=== PATIENT | male | born 1975 | race Hispanic/Latino ===

== ENCOUNTER 2020-06-02 10:36 | Emergency (ER) | payer OTHER ==
[2020-06-02 10:57] LABS: BASOPHILS % (AUTO) 0.6 % (0.0-5.0); EOSINOPHILS % (AUTO) 0.4 % (0.0-8.0); HEMATOCRIT 49.2 % (42-54); LYMPHOCYTES % (AUTO) 35.6 % (21.0-51.0); MEAN CORPUSCULAR HEMOGLOBIN 30.4 pg (27.0-33.0); MEAN CORPUSCULAR HGB CONC 34.6 g/dL (32.0-36.0); MONOCYTES % (AUTO) 11.3 % (3.0-13.0); NEUTROPHILS % (AUTO) 51.9 % (40.0-77.0); PLATELET COUNT (AUTO) 145 K/uL (130-400); RED BLOOD CELL COUNT(AUTO) 5.59 MIL/uL (4.50-6.20); RED CELL DISTRIBUTION WIDTH 11.7 % (11.0-15.5); WHITE BLOOD COUNT (AUTO) 4.9 K/uL (4.8-10.8)
[2020-06-02 11:11] LABS: INR 0.97 (0.85-1.15); PROTHROMBIN TIME 10.6 SEC (9.6-11.6)
[2020-06-02 11:13] LABS: ALBUMIN 3.8 g/dL (3.5-5.0); BILIRUBIN,TOTAL 0.5 mg/dL (0.2-1.0); CREATININE 1.1 mg/dL (0.5-1.5); POTASSIUM 4.1 mmol/L (3.5-5.1); TOTAL PROTEIN, SERUM 8.3 g/dL (6.0-8.3)
== END 2020-06-02 13:16 | disposition home or self-care (01) ==
LOC: EDH 10:36
DX: U07.1 COVID-19 (principal); E11.65 Type 2 diabetes mellitus with hyperglycemia; E66.9 Obesity, unspecified; Z87.891 Personal history of nicotine dependence
CPT/HCPCS: 36415; 71045; 80053; 82550; 83605; 84484; 85025; 85610; 85730; 87040; 87426; 87804; 93005

== ENCOUNTER 2021-09-26 20:08 | Emergency (ER) | payer OTHER, SELFPAY ==
[~2021-09-26] VITALS: Ht 175.3 cm; Wt 111.1 kg
[2021-09-26] MEDS ORDERED: SULF1TAB42 PO (21:50)
[2021-09-26 21:58] VITALS: BP 142/75
[2021-09-26] MEDS ORDERED: SULFAMETHOX-TMP DS 800/160 TAB PO SCH (22:00)
== END 2021-09-26 22:09 | disposition home or self-care (01) ==
LOC: EDH 20:08
DX: L02.211 Cutaneous abscess of abdominal wall (principal); E11.9 Type 2 diabetes mellitus without complications
CPT/HCPCS: 10060

== ENCOUNTER 2021-10-14 10:24 | Emergency (ER) | payer OTHER ==
[~2021-10-14] VITALS: Ht 175.3 cm; Wt 106.6 kg
[~2021-10-14 10:24] MED LIST: SULF1TAB42 PO
[2021-10-14 11:04] LABS: HEMATOCRIT 44.1 % (42-54); MEAN CORPUSCULAR HEMOGLOBIN 30.6 pg (27.0-33.0); MEAN CORPUSCULAR HGB CONC 35.1 g/dL (32.0-36.0); MEAN CORPUSCULAR VOLUME 87.2 fL (79-99); RED BLOOD CELL COUNT(AUTO) 5.06 MIL/uL (4.50-6.20); RED CELL DISTRIBUTION WIDTH 11.4 % (11.0-15.5); WHITE BLOOD COUNT (AUTO) 10.8 K/uL (4.8-10.8)
[2021-10-14 11:18] LABS: CREATININE 1.1 mg/dL (0.5-1.5); POTASSIUM 4.5 mmol/L (3.5-5.1)
[2021-10-14 11:22] LABS: ALBUMIN 3.2 g/dL (3.5-5.0); TOTAL PROTEIN, SERUM 8.1 g/dL (6.0-8.3)
[2021-10-14] MEDS ORDERED: SULFAMETHOX-TMP DS 800/160 TAB PO SCH (12:00)
[2021-10-14] MEDS ORDERED: CEFTRIAXONE 1G VIAL IVP ONE (12:00)
[2021-10-14] MEDS ORDERED: ACET-2079 PO (12:03)
[2021-10-14] MEDS ORDERED: DOXY100C5 PO (12:03)
[2021-10-14] MEDS ORDERED: METF-446 PO (12:03)
[2021-10-14 12:06] VITALS: BP 137/90
== END 2021-10-14 12:22 | disposition home or self-care (01) ==
LOC: EDH 10:24
DX: L02.211 Cutaneous abscess of abdominal wall (principal); E11.9 Type 2 diabetes mellitus without complications; Z79.84 Long term (current) use of oral hypoglycemic drugs
CPT/HCPCS: 99283; 96374; 10060; 80053; 85027; 87070; 87076; 87077; 87186; 36415; J0696; 96372